=== PATIENT | female | born 1995 | race Caucasian/White ===

== ENCOUNTER 2021-07-09 20:09 | Inpatient (IN) | payer MEDICAID ==
[~2021-07-09] VITALS: Ht 175.3 cm; Wt 95.7 kg
[2021-07-09] MEDS ORDERED: ALPR0.5T8 PO (20:48)
[2021-07-09] MEDS ORDERED: CYCL10TA17 PO (20:48)
[2021-07-09] MEDS ORDERED: ONDA-104 PO (20:48)
[2021-07-09] MEDS ORDERED: ZOLP10TA8 PO (20:48)
[2021-07-09 21:35] LABS: BASOPHILS % (AUTO) 0.3 % (0.0-2.0); EOSINOPHILS % (AUTO) 0.1 % (1.0-6.0); HEMATOCRIT 38.4 % (36-46); HEMOGLOBIN 13.3 g/dL (12.0-16.0); LYMPHOCYTES # (AUTO) 1.1 K/uL (1.0-4.8); MEAN CORPUSCULAR HEMOGLOBIN 32.5 pg (26.0-34.0); MEAN CORPUSCULAR HGB CONC 34.7 G/dL (31.0-37.0); MEAN CORPUSCULAR VOLUME 94 fL (80-100); MONOCYTES # (AUTO) 0.9 K/uL (0.1-1.0); MONOCYTES % (AUTO) 11.7 % (2.0-9.0); NEUTROPHILS # (AUTO) 5.8 K/uL (1.8-7.7); NEUTROPHILS % (AUTO) 73.9 % (40.0-70.0); PLATELET COUNT (AUTO) 225 K/uL (150-450); RED BLOOD CELL COUNT(AUTO) 4.09 MIL/uL (4.00-5.20); RED CELL DISTRIBUTION WIDTH 13.9 % (11.5-14.5)
[2021-07-09 21:50] LABS: ANION GAP 11 mmol/L (8-16); CARBON DIOXIDE 26 mmol/L (22-29); CHLORIDE 102 mmol/L (98-107); CREATININE 0.97 mg/dL (0.60-1.30); GLOMERULAR FILTR. RATE CALC > 60 mL/min (>60); GLUCOSE,RANDOM 93 mg/dL (70-110); POTASSIUM 3.5 mmol/L (3.5-5.1); SODIUM SERUM 139 mmol/L (136-145); UREA NITROGEN, BLOOD 15 mg/dL (7-18)
[2021-07-09 22:01] LABS: ALANINE AMINOTRANSFERASE 61 U/L (12-78); ALBUMIN 4.2 g/dL (3.4-5.0); ALKALINE PHOSPHATASE 59 U/L (46-116); ASPARTATE AMINOTRANSFERASE 48 U/L (15-37); HCG,QUANTITATIVE < 1 mIU/mL (0-6); TOTAL PROTEIN, SERUM 7.8 g/dL (6.4-8.2)
[2021-07-09] MEDS ORDERED: LORazepam 2 MG TABLET PO ONE (22:30)
[2021-07-09] MEDS ORDERED: OLANZapine 5 MG RAPDIS TABLET PO ONE (22:30)
[2021-07-09] MEDS ORDERED: ZOLPIDEM TARTRATE 10 MG TABLET PO PRN (23:00)
[2021-07-09 23:12] LABS: COVID AG,FIA SOURCE NASOPHARYNGEAL
[2021-07-10] MEDS: QUEtiapine FUMARATE 100 MG TABLET PO PRN ×2 (00:01→00:03)
[2021-07-10 01:38] LABS: CHOL/HDL RATIO 1.8 (3.9-5.7); CHOLESTEROL 199 mg/dL (131-200); HDL CHOLESTEROL 109 mg/dL (40-60); LDL CHOL (CALC.) 77 mg/dL (0-130); TRIGLYCERIDES 66 mg/dL (15-150)
[2021-07-10] MEDS: LORazepam 2 MG TABLET PO PRN (17:44)
[2021-07-10 17:55] LABS: APPEARANCE,URINE CLOUDY (CLEAR); BILIRUBIN,URINE NEGATIVE (NEGATIVE); GLUCOSE, URINE (UA) NEGATIVE (NEGATIVE); KETONES,URINE NEGATIVE (NEGATIVE); LEUKOCYTE ESTERASE ,URINE SMALL (NEGATIVE); OCCULT BLOOD,URINE NEGATIVE (NEGATIVE); PROTEIN,URINE NEGATIVE (NEGATIVE)
[2021-07-10 18:01] LABS: AMPHET/METH SCREEN,URINE POSITIVE (NEGATIVE); BARBITURATE SCREEN, URINE NEGATIVE (NEGATIVE); BENZODIAZEPINES SCREEN,URINE NEGATIVE (NEGATIVE); CANNABINOID SCREEN,URINE NEGATIVE (NEGATIVE); COCAINE SCREEN,URINE NEGATIVE (NEGATIVE); METHADONE SCREEN, URINE NEGATIVE (NEGATIVE); OPIATE SCREEN,URINE NEGATIVE (NEGATIVE)
[2021-07-10 18:03] LABS: PHENCYCLIDINE SCREEN,URINE NEGATIVE (NEGATIVE)
[2021-07-10 18:08] LABS: BACTERIA,URINE Many /HPF (None Seen); NITRATE,URINE POSITIVE (NEGATIVE); RBC,URINE 0-2 /HPF (0-2); SQUAMOUS EPITHELIAL CELL,UR Few /LPF (None Seen); WBC,URINE 26-50 /HPF (0-5)
[2021-07-11 00:30] VITALS: BP 121/66
[2021-07-11] MEDS: LORazepam 2 MG TABLET PO PRN ×2 (00:35→14:52)
[2021-07-11 07:40] LABS: FREE T4 (FREE THYROXINE) 0.85 ng/dL (0.76-1.46); THYROID STIMULATING HORMONE 0.85 uIU/mL (0.36-3.74)
[2021-07-11 07:48] LABS: HEMOGLOBIN A1C 4.5 % (3.8-5.6)
[2021-07-11 08:41] VITALS: BP 120/78
[2021-07-11] MEDS ORDERED: LOPERAMIDE HCL 2 MG CAPSULE PO PRN (16:00)
[2021-07-11] MEDS ORDERED: IBUPROFEN 400 MG TABLET PO PRN (16:00)
[2021-07-11] MEDS ORDERED: CloNIDine HCL 0.1 MG TABLET PO PRN (16:00)
[2021-07-11] MEDS ORDERED: ALBUTEROL SULFATE HFA 90 MCG/PUFF 8 GM INHALER IH PRN (16:00)
[2021-07-11] MEDS ORDERED: GuaiFENesin/D-METHORPHAN [SUGAR-FREE] 200-20MG/10 ML SYRUP UDCUP PO PRN (16:00)
[2021-07-11] MEDS ORDERED: PETROLATUM,WHITE 28 GM JELLY TP PRN (16:00)
[2021-07-11] MEDS ORDERED: DOCUSATE SODIUM 100 MG CAPSULE PO PRN (16:00)
[2021-07-11] MEDS ORDERED: ACETAMINOPHEN 325 MG TABLET PO PRN (16:00)
[2021-07-11] MEDS ORDERED: NICOTINE 14 MG/24 HOUR PATCH TD PRN (16:00)
[2021-07-11] MEDS ORDERED: MAGNESIUM HYDROXIDE SUSPENSION 30 ML UDCUP PO PRN (16:00)
[2021-07-11] MEDS ORDERED: ONDANSETRON HCL 4 MG TABLET PO PRN (16:00)
[2021-07-11] MEDS ORDERED: MAG HYDROX/AL HYDROX/SIMETH ES 30 ML SUSPENSION UDCUP PO PRN (16:00)
[2021-07-11] MEDS: CEPHALEXIN MONOHYDRATE 500 MG CAPSULE PO SCH (18:49)
[2021-07-12 05:59] VITALS: BP 130/73
[2021-07-12 08:39] VITALS: BP 112/73
[2021-07-12] MEDS: CEPHALEXIN MONOHYDRATE 500 MG CAPSULE PO SCH ×3 (08:46→17:31)
[2021-07-12] MEDS: ESCITALOPRAM OXALATE 10 MG TABLET PO SCH (08:46)
[2021-07-12] MEDS: LORazepam 2 MG TABLET PO PRN ×2 (09:15→13:48)
[2021-07-12 16:19] VITALS: BP 133/68
[2021-07-13 00:40] VITALS: BP 129/72
[2021-07-13] MEDS: CEPHALEXIN MONOHYDRATE 500 MG CAPSULE PO SCH (08:41)
[2021-07-13] MEDS: ESCITALOPRAM OXALATE 10 MG TABLET PO SCH (08:41)
[2021-07-13] MEDS ORDERED: CEPH500C3 PO (08:41)
[2021-07-13 08:57] VITALS: BP 93/59
[2021-07-13] MEDS ORDERED: ESCI-8 PO (09:11)
== END 2021-07-13 10:16 | disposition home or self-care (01) | DRG 750 ==
LOC: EMS 20:11 → B2S 07-10 20:00
PROVIDERS: ADMIT Psychiatry & Neurology Psychiatry; ATTEND Psychiatry & Neurology Psychiatry
DX: F25.1 Schizoaffective disorder, depressive type (principal); R45.851 Suicidal ideations; F15.20 Other stimulant dependence, uncomplicated; Y90.1 Blood alcohol level of 20-39 mg/100 ml; F51.4 Sleep terrors [night terrors]; G47.00 Insomnia, unspecified; F41.9 Anxiety disorder, unspecified; M62.838 Other muscle spasm; N39.0 Urinary tract infection, site not specified; Z20.822 Contact with and (suspected) exposure to COVID-19; Z79.899 Other long term (current) drug therapy; Z98.84 Bariatric surgery status
CPT/HCPCS: 80053; 80061; 81001; 83036; 84439; 84443; 84702; 85025; 87077; 87086; 87186; 99285; G0480